=== PATIENT | male | born 1955 | race Caucasian/White ===

== ENCOUNTER → 2023-11-26 06:23 | Day surgery (SDC) | payer MEDICARE, OTHER, SELFPAY | LOC: GI 06:23 | PROVIDERS: ATTENDING PHYSICIAN Surgery | DX: R19.4 Change in bowel habit (principal); Z98.0 Intestinal bypass and anastomosis status; K63.5 Polyp of colon | CPT/HCPCS: 45380; 88305 ==

== ENCOUNTER → 2023-12-01 07:36 | Outpatient (REF) | payer MEDICARE, OTHER, SELFPAY | LOC: RAD 07:36 | PROVIDERS: ATTENDING PHYSICIAN Internal Medicine Interventional Cardiology; FAMILY PHYSICIAN Family Medicine | DX: I73.9 Peripheral vascular disease, unspecified (principal) | CPT/HCPCS: 93922; 93925 ==

== ENCOUNTER → 2024-02-05 11:56 | Outpatient (REF) | payer MEDICARE, OTHER, SELFPAY | LOC: MRI 3T 11:56 | PROVIDERS: ATTENDING PHYSICIAN Internal Medicine Gastroenterology; FAMILY PHYSICIAN Family Medicine | DX: Z15.89 Genetic susceptibility to other disease (principal) | CPT/HCPCS: 74183; A9575 ==

== ENCOUNTER → 2024-02-17 08:55 | Outpatient (REF) | payer MEDICARE, OTHER, SELFPAY | LOC: HWRAD 08:55 | PROVIDERS: ATTENDING PHYSICIAN Internal Medicine; FAMILY PHYSICIAN Family Medicine | DX: F17.210 Nicotine dependence, cigarettes, uncomplicated (principal) | CPT/HCPCS: 71271 ==

== ENCOUNTER 2024-04-26 06:09 | Day surgery (SDC) | payer MEDICARE, OTHER, SELFPAY ==
--- NOTE | 2024-03-23 12:11 | CM ---
Patient is scheduled for an elective L TKR on 04/26/24- he is a same day patient. Spoke with patient prior to surgery. Introduced role of Orthopedic Navigator. Patient reports that he lives with his in a two story home. There is one step to enter
and a flight of steps to the second floor. He currently functions independently. He has a cane, shower seat, grab bar in the shower and rolling walker. He has never had VN services. PCP is Umer Gonzalez.
Discussed orthopedic program and post surgical plans. Reviewed that he will have VN services initially (medicare.gov website and ratings reviewed) and will then start outpatient PT. Patient selects [facility] (face sheet faxed to [facility] to facilitate
confirmation of benefits) for his home care needs and will go to [facility] for outpatient PT.
Patient is in agreement with plan and states that his will be home with him.
Patient will complete online education.
Plan: Orthopedic Navigator will remain available to assist with the care of patient and will reassess discharge needs after surgery.
[2024-04-05 12:15] VITALS: BMI 28.7
[2024-04-05 13:54] LABS: Mean Corpuscular Hgb 32.6 pg (27.0-31.0); Mean Platelet Volume 10.6 fL (7.4-10.4); Platelet Count 299 10^3/uL (130-400); Red Cell Dist. Width 13.7 % (11.5-14.5); White Blood Cell Count 10.5 10^3/uL (4.8-10.8)
[2024-04-05 14:26] LABS: ALT (SGPT) 31 U/L (0-50); AST (SGOT) 31 U/L (17-59); Albumin 3.8 g/dl (3.5-5.0); Alkaline Phosphatase 108 U/L (38-126); Blood Urea Nitrogen 15 mg/dl (9-20); Calcium 9.3 mg/dl (8.4-10.2); Carbon Dioxide 26 mmol/L (22-30); Chloride 103 mmol/L (98-107); Estimated Creatinine Clearance 49 ml/min; Glucose 108 mg/dl (70-99); Potassium 4.3 mmol/L (3.5-5.1); Sodium 137 mmol/L (135-145); Total Bilirubin 0.5 mg/dl (0.2-1.3); Total Protein 6.1 g/dl (6.3-8.2); eGFR > 60.00
[2024-04-05 17:00] VITALS: BMI 28.7
[2024-04-06 09:41] LABS: Glycohemoglobin (HgbA1c) 6.4 % (4.0-5.6)
--- NOTE | 2024-04-06 16:04 | W.PN.UPDATE ---
Update Note
Progress Note Update
Metformin 500mg daily with carb control advised due to A1C 6.4.
Again advised tobacco cessation which he agrees
[2024-04-26] VITALS (11 sets, daily range): BP systolic 114–145; BP diastolic 59–94; PULSE 57; BMI 28.7
[2024-04-26 06:36] LABS: Glucose - Point of Care 115 mg/dl (70-99)
[2024-04-26] MEDS: TYLENOL 650 MG PO (06:38)
[2024-04-26] MEDS: CELEBREX 200 MG PO (06:38)
[2024-04-26] MEDS: NORMOSOL-R 1000 IV (06:38)
--- NOTE | 2024-04-26 07:09 | W.DS.TRANS ---
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
-
Discharge Instructions:
Discharge Diagnosis/Procedures L TKA Dr. Hodges 04/26/24
Diet Diabetic, Carb Controlled
Activity As tolerated,With Walker
Driving Restrictions No driving
Bathing Restrictions OK to Shower
Other Services PT
Wound Care Aquacel in place
Instructions:
Stand-Alone Forms: SDS Total Hip and Knee D/C
Changes to Home Medications: Yes
Discharge Medications:
DC Medications w/original date entered in [facility]
atorvastatin 40 mg tablet 40 mg PO QPM ##30 07/13/18
aspirin 81 mg chewable tablet 81 mg PO QPM 12/22/19
magnesium oxide 500 mg PO BID #60 tabs 12/25/19
multivitamin-ferrous fumarate-folic acid 18 mg-400 mcg tablet (Centrum) 1 ea PO DAILY 12/11/21
omeprazole 20 mg capsule,delayed release 20 mg PO DAILY 12/11/21
umeclidinium 62.5 mcg-vilanterol 25 mcg/actuation powdr for inhalation (Anoro Ellipta) 1 ea IH DAILY 12/11/21
wheat dex-L. acid-aspartame 4 gram-500 million cell/6 gram oral powder (Fiber With Probiotic) 360 gm PO DAILY 12/11/21
oxycodone 15 mg tablet,oral ONLY (not feeding tubes) 15 mg PO Q4H 03/06/23
amlodipine 2.5 mg tablet 2.5 mg PO DAILY 03/31/24
atenolol 100 mg tablet 100 mg PO HS 03/31/24
ferrous sulfate 325 mg (65 mg iron) tablet 325 mg PO BID 03/31/24
finasteride 5 mg tablet 5 mg PO DAILY 03/31/24
gabapentin 300 mg capsule 600 mg PO HS 03/31/24
tamsulosin 0.4 mg capsule 0.4 mg PO BID 03/31/24
celecoxib 200 mg capsule 200 mg PO DAILY anti-inflammatory #14 caps 04/05/24
dexamethasone 4 mg tablet 4 mg PO BID inflammation #6 tabs 04/05/24
mupirocin 2 % topical ointment 1 applic topical BID infection prevention #1 tube 04/05/24
metformin 500 mg tablet 500 mg PO .dailywmeal elevated blood sugar #30 tabs 04/06/24
Saccharomyces boulardii 250 mg capsule (Florastor) 250 mg PO BID #1 cap 04/26/24
acetaminophen 325 mg capsule (Tylenol) 650 mg (2 x 325 mg) PO QID #2 caps 04/26/24
aspirin 325 mg tablet 325 mg PO DAILY blood clot prevention #1 tab 04/26/24
docusate sodium 100 mg capsule (Colace) 100 mg PO BID stool softner #1 cap 04/26/24
magnesium hydroxide 400 mg/5 mL oral suspension (Milk of Magnesia) 30 ml PO HS PRN Constipation #1 mL 04/26/24
sennosides 8.6 mg tablet (Senokot) 17.2 mg (2 x 8.6 mg) PO BID laxative #2 tabs 04/26/24
Home Medication Changes
celecoxib 200 mg capsule 200 mg PO DAILY anti-inflammatory #14 caps 04/05/24
dexamethasone 4 mg tablet 4 mg PO BID inflammation #6 tabs 04/05/24
mupirocin 2 % topical ointment 1 applic topical BID infection prevention #1 tube 04/05/24
metformin 500 mg tablet 500 mg PO .dailywmeal elevated blood sugar #30 tabs 04/06/24
Saccharomyces boulardii 250 mg capsule (Florastor) 250 mg PO BID #1 cap 04/26/24
Pending Results: No
[2024-04-26] MEDS: DILAUDID 0.5 MG IV (09:00)
--- NOTE | 2024-04-26 10:36 | CM ---
Patient had planned L TKR today. Met with patient and his at bedside to review discharge plans. Patient will be returning home today with services through [facility]. On Friday, 04/30, patient will start outpatient PT at [facility]. Reviewed MD follow
up in two weeks and patient has already scheduled his appointment.
Patient has his rolling walker here with him.
PT and VN were kept updated as to progress and discharge plans.
[2024-04-26] MEDS: ROXICODONE 5 MG PO ×2 (10:48→12:02)
[2024-04-26] MEDS: ANCEF 5 IV (11:14)
[2024-04-26] MEDS: FLOMAX 0.400000000000000022 MG PO (11:15)
[2024-04-26] MEDS: PROSCAR 5 MG PO (11:15)
== END 2024-04-26 13:25 | disposition home or self-care (01) ==
LOC: SDS 06:09
PROVIDERS: ATTENDING PHYSICIAN Specialist; FAMILY PHYSICIAN Family Medicine; OTHER PHYSICIAN Internal Medicine Interventional Cardiology; OTHER PHYSICIAN Physician Assistant Medical
DX: M17.12 Unilateral primary osteoarthritis, left knee (principal)
CPT/HCPCS: 27447; 36415; 73560; 80053; 82962; 83036; 85027; 87070; 97116; 97161; C1713; C1776

== ENCOUNTER → 2024-05-20 13:24 | Outpatient (REF) | payer MEDICARE, OTHER, SELFPAY | LOC: RAD 13:24 | PROVIDERS: ATTENDING PHYSICIAN Family Medicine | DX: R60.0 Localized edema (principal) | CPT/HCPCS: 93971 ==

== ENCOUNTER → 2024-05-25 06:06 | Outpatient (REF) | payer MEDICARE, OTHER, SELFPAY ==
[2024-05-25 09:33] LABS: % Basophils 1.2 % (0-2); % Eosinophils 2.7 % (0-6); % Immature Granulocytes 0.8 % (0-0.5); % Monocytes 8.3 % (1.7-9.3); Absolute Basophils 0.1 10^3/uL (0-0.2); Absolute Eosinophils 0.2 10^3/uL (0-0.7); Absolute Immature Granulocytes 0.1 10^3/uL (0-0.05); Absolute Lymphocytes 1.8 10^3/uL (1.2-3.4); Absolute Monocytes 0.6 10^3/uL (0.1-0.6); Absolute Neutrophils 4.7 10^3/uL (1.4-6.5); Hematocrit 37.3 % (39.0-52.0); Hemoglobin 12.7 g/dL (13.0-18.0); Mean Corpuscular Hgb 31.8 pg (27.0-31.0); Mean Corpuscular Volume 93.3 fL (80.0-94.0); Mean Platelet Volume 9.9 fL (7.4-10.4); Nucleated Red Blood Cells % 0 % (-); Platelet Count 433 10^3/uL (130-400); Red Cell Dist. Width 13.8 % (11.5-14.5); White Blood Cell Count 7.5 10^3/uL (4.8-10.8)
[2024-05-25 09:56] LABS: ALT (SGPT) 17 U/L (0-50); AST (SGOT) 23 U/L (17-59); Albumin 3.6 g/dl (3.5-5.0); Alkaline Phosphatase 123 U/L (38-126); Blood Urea Nitrogen 20 mg/dl (9-20); Calcium 9.4 mg/dl (8.4-10.2); Carbon Dioxide 26 mmol/L (22-30); Chloride 103 mmol/L (98-107); Glucose 92 mg/dl (70-99); HDL Cholesterol 33 mg/dl; Iron 54 ug/dl (49-181); LDL Cholesterol, Calculated 36 mg/dl; Magnesium 2.2 mg/dl (1.6-2.3); Potassium 4.4 mmol/L (3.5-5.1); Sodium 136 mmol/L (135-145); Total Bilirubin 0.4 mg/dl (0.2-1.3); Total Cholesterol 87 mg/dl (50-199); Total Protein 5.9 g/dl (6.3-8.2); Triglyceride 94 mg/dl (10-149); Very Low Density Lipoprotein 18 mg/dl (0-30); eGFR > 60.00
[2024-05-25 10:41] LABS: PSA, Total - Screen 1.15 ng/ml (0.0-4.0)
[2024-05-25 10:46] LABS: Ferritin 76.8 ng/ml (17.9-464.0)
[2024-05-25 11:22] LABS: TSH Reflex To Free T4 2.36 uIU/ml (0.47-4.68)
== END ==
LOC: HWLAB 06:06
PROVIDERS: ATTENDING PHYSICIAN Family Medicine
DX: E83.42 Hypomagnesemia (principal); E78.5 Hyperlipidemia, unspecified; N40.1 Benign prostatic hyperplasia with lower urinary tract symptoms; E78.00 Pure hypercholesterolemia, unspecified; R73.03 Prediabetes; E61.1 Iron deficiency; Z12.5 Encounter for screening for malignant neoplasm of prostate
CPT/HCPCS: 36415; 80053; 80061; 82728; 83036; 83540; 83735; 84443; 85025; G0103

== ENCOUNTER → 2024-05-26 11:06 | Outpatient (REF) | payer MEDICARE, OTHER, SELFPAY ==
[2024-05-26 16:25] LABS: Urine Albumin Negative (Neg - Trace); Urine Bilirubin Negative (Negative); Urine Character Clear (Clear); Urine Color Yellow; Urine Glucose Negative (Negative); Urine Ketone Negative (Negative); Urine Leukocyte Negative (Negative); Urine Nitrite Negative (Negative); Urine Occult Blood Negative (Negative); Urine Urobilinogen Negative (Neg - 1+)
== END ==
LOC: HWLAB 11:06
PROVIDERS: ATTENDING PHYSICIAN Family Medicine
DX: E83.42 Hypomagnesemia (principal); E78.5 Hyperlipidemia, unspecified; N40.1 Benign prostatic hyperplasia with lower urinary tract symptoms; E78.00 Pure hypercholesterolemia, unspecified; R73.03 Prediabetes; E61.1 Iron deficiency
CPT/HCPCS: 81003

== ENCOUNTER → 2024-06-14 12:50 | Outpatient (REF) | payer MEDICARE, OTHER, SELFPAY | LOC: RAD 12:50 | PROVIDERS: ATTENDING PHYSICIAN Surgery Vascular Surgery; FAMILY PHYSICIAN Family Medicine | DX: I73.9 Peripheral vascular disease, unspecified (principal) | CPT/HCPCS: 93922; 93925 ==

== ENCOUNTER 2024-11-22 07:59 | Emergency (ER) | payer MEDICARE, OTHER, SELFPAY ==
[2024-11-22 08:01] VITALS: BP 146/62
--- NOTE | 2024-11-22 08:19 | ED.GENMED ---
History of Present Illness
General
Chief Complaint: Male Genito-Urinary Symptoms
Source: patient
Exam Limitations: none
Time Seen by Provider: 11/22/24 08:09
History of Present Illness
History of Present Illness:
69-year-old male presents with inability urinate since 10 PM last evening. He has a history of enlarged prostate and follows with urology for this. He takes finasteride and Flomax. He moved his bowels this morning thought he would be able to void
afterwards but he is not been able to. He states his stream has been getting weaker over the past week. No fever or vomiting. No other complaints at this time
Past History
Past History
ED Past Medical History: GERD, HTN, Hypercholesterolemia, Other (Chronic back pain, left occipital stroke 2018) and Other (Diverticulitis, adenomatous polyp of large intestine with resection, C. difficile infection)
ED Past Surgical History: Bowel resection (Bowel resection with colostomy and reversal of colostomy) and Orthopedic (Multiple orthopedic surgeries including lumbar fusion, knee surgery, wrist surgery)
Social History
Tobacco: Smoker
Alcohol: Occasional
Drug: None
Personal:
Living: with family
Family History
Family History: Other (reviewed and unremarkable)
Phy Exam
Physical Exam
Physical Exam:
General: Well-appearing male no acute respiratory distress
HEENT: Normocephalic atraumatic
Abdomen is soft suprapubic discomfort is noted upon palpation no costovertebral angle tenderness
Extremities: No cyanosis
Course
Vital Signs
Initial and Last Documented VS:
Initial Vital Signs
Temp Pulse Resp BP Pulse Ox
97.8 F 50 16 146/62 98
11/22/24 08:01 11/22/24 08:01 11/22/24 08:01 11/22/24 08:01 11/22/24 08:01
Last Documented Vital Signs
Temp Pulse Resp BP Pulse Ox
97.8 F 50 16 146/62 98
11/22/24 08:01 11/22/24 08:01 11/22/24 08:01 11/22/24 08:01 11/22/24 08:01
MDM/Problems Addressed
Differential Diagnosis Includes:
Urinary retention. Likely due to enlarged prostate. Feels well otherwise. Bladder scan pending. If patient is retaining large amount of urine we will insert Albarran catheter for urinary retention having follow-up with urology
*Critical Care Note
Total Time (30-74mins, 75-104mins- exclusive of procedures): Not Applicable
Update Note
Update Note:
Patient did have over 300 mL of urine in the bladder. He was not able to void on his own. Catheter placed Albarran remained in place due to urinary retention. Will advise follow-up with urology
ED Attending Note
-
Portions of this chart may have been created with voice recognition software.� Occasional wrong word or��sound alike� substitutions may have occurred due to the inherent limitations of voice recognition software.
Discharge Plan
Departure
Patient Disposition: Home (Routine Discharge)
Date of Disposition: 11/22/24
Time of Disposition: 10:31
Patient with high blood pressure during this ER visit?: No
Discharge Problem:
Acute urinary retention
Instructions: How to Care for Your Albarran Catheter, Male, Urinary Retention (DC)
Prescriptions:
No Action
atorvastatin 40 MG tablet
40 mg PO QPM Qty: 30 0RF
aspirin 81 MG tablet,chewable
81 mg PO QPM
magnesium oxide 500 MG tablet
500 mg PO BID Qty: 60 0RF
Anoro Ellipta 1 EACH blister with device
1 ea IH DAILY
Centrum 1 EACH tablet
1 ea PO DAILY
omeprazole 20 MG capsule,delayed release(DR/EC)
20 mg PO DAILY
Fiber With Probiotic 360 GM powder
360 gm PO DAILY
Patient Comments:
fiberchoice PRE BIOTIC gummy daily
oxycodone 15 mg Tablet, Oral Only
15 mg PO Q4H
atenolol 100 mg Tablet
100 mg PO HS
amlodipine 2.5 mg Tablet
2.5 mg PO DAILY
tamsulosin 0.4 mg Capsule
0.4 mg PO BID
ferrous sulfate 325 mg (65 mg iron) Tablet
325 mg PO BID
gabapentin 300 mg Capsule
600 mg PO HS
finasteride 5 mg Tablet
5 mg PO DAILY
mupirocin 2 % ointment
1 applic topical BID Qty: 1 0RF
Patient Comments:
strated treatment friday04/23/24 and completed BID, last took at home 04/26/24 in am
celecoxib 200 mg capsule
200 mg PO DAILY Qty: 14 0RF
Rx Instructions:
*take with food
*space out 2 hours from aspirin
dexamethasone 4 mg tablet
4 mg PO BID Qty: 6 0RF
Rx Instructions:
take with food
post-op use only
metformin 500 mg tablet
500 mg PO .dailywmeal Qty: 30 3RF
Patient Comments:
last took 04/25/24 at 1700
sennosides [Senokot] 8.6 mg tablet
17.2 mg PO BID Qty: 2 0RF
aspirin 325 mg tablet
325 mg PO DAILY Qty: 1 0RF
Rx Instructions:
Take with food
magnesium hydroxide [Milk of Magnesia] 400 mg/5 mL suspension
30 ml PO HS PRN (Reason: Constipation) Qty: 1 0RF
docusate sodium [Colace] 100 mg capsule
100 mg PO BID Qty: 1 0RF
Saccharomyces boulardii [Florastor] 250 mg capsule
250 mg PO BID Qty: 1 0RF
acetaminophen [Tylenol] 325 mg capsule
650 mg PO QID Qty: 2 0RF
docusate sodium [Colace] 100 mg capsule
100 mg PO BID Qty: 60 0RF
sennosides 17.2 mg tablet
17.2 mg PO DAILY Qty: 30 0RF
acetaminophen 500 mg capsule
1,000 mg PO Q6H PRN (Reason: fever or pain) Qty: 90 0RF
baclofen 10 mg tablet
10 mg PO TID Qty: 90 0RF
Referrals:
Umer Gonzalez, [Family Provider] -
Activity Restrictions/Additional Instructions:
Keep Albarran catheter in place. Follow-up with urology for next available appointment. Return if needed
Interventions
Interventions:
*Risk Screen - Suicide Last Done: 11/22/24 08:01
*General Assessment Last Done: 11/22/24 08:01
*Neglect/Abuse Screening Last Done: 11/22/24 08:01
ED-Male Genitourinary Assessment Last Done: 11/22/24 09:06
Discharge Date and Time
Print Language: MALTESE
[2024-11-22 11:07] VITALS: BP 145/65
== END 2024-11-22 11:10 | disposition home or self-care (01) ==
LOC: EMR 07:59
PROVIDERS: EMERGENCY PHYSICIAN Emergency Medicine; FAMILY PHYSICIAN Family Medicine
DX: N40.1 Benign prostatic hyperplasia with lower urinary tract symptoms (principal); R33.8 Other retention of urine; K21.9 Gastro-esophageal reflux disease without esophagitis; I10 Essential (primary) hypertension; E78.00 Pure hypercholesterolemia, unspecified; Z86.73 Personal history of transient ischemic attack (TIA), and cerebral infarction without residual deficits
CPT/HCPCS: 51702; 99283

== ENCOUNTER → 2025-01-14 10:00 | Outpatient (REF) | payer MEDICARE, OTHER, SELFPAY | LOC: DHVS 10:00 | PROVIDERS: ATTENDING PHYSICIAN Surgery Vascular Surgery; FAMILY PHYSICIAN Family Medicine | DX: I73.9 Peripheral vascular disease, unspecified (principal) | CPT/HCPCS: 93922; 93925 ==

== ENCOUNTER → 2025-02-24 10:49 | Outpatient (REF) | payer MEDICARE, OTHER, SELFPAY | LOC: PAVMRI 10:49 | PROVIDERS: ATTENDING PHYSICIAN Internal Medicine Gastroenterology; FAMILY PHYSICIAN Family Medicine | DX: K86.2 Cyst of pancreas (principal) | CPT/HCPCS: 74183; A9575 ==

== ENCOUNTER → 2025-05-05 08:31 | Outpatient (REF) | payer MEDICARE, OTHER, SELFPAY | LOC: HWRAD 08:31 | PROVIDERS: ATTENDING PHYSICIAN Internal Medicine; FAMILY PHYSICIAN Family Medicine | DX: F17.210 Nicotine dependence, cigarettes, uncomplicated (principal) | CPT/HCPCS: 71271 ==

== ENCOUNTER → 2025-07-01 06:06 | Outpatient (REF) | payer MEDICARE, OTHER, SELFPAY ==
[2025-07-01 09:17] LABS: Hematocrit 43.4 % (39.0-52.0); Hemoglobin 14.9 g/dL (13.0-18.0); Mean Corp Hgb Conc. 34.3 g/dL (33.0-37.0); Mean Corpuscular Volume 96.7 fL (80.0-94.0); Nucleated Red Blood Cells % 0 % (-); Platelet Count 286 10^3/uL (130-400); Red Cell Dist. Width 14.0 % (11.5-14.5)
[2025-07-01 09:42] LABS: ALT (SGPT) 31 U/L (0-50); AST (SGOT) 22 U/L (17-59); Albumin 4.0 g/dl (3.5-5.0); Alkaline Phosphatase 100 U/L (38-126); Blood Urea Nitrogen 23 mg/dl (9-20); Calcium 9.9 mg/dl (8.4-10.2); Carbon Dioxide 30 mmol/L (22-30); Chloride 100 mmol/L (98-107); Glucose 97 mg/dl (70-99); HDL Cholesterol 44 mg/dl; LDL Cholesterol, Calculated 65 mg/dl; Magnesium 2.1 mg/dl (1.6-2.3); Potassium 4.3 mmol/L (3.5-5.1); Sodium 136 mmol/L (135-145); Total Protein 6.4 g/dl (6.3-8.2); Very Low Density Lipoprotein 16 mg/dl (0-30); eGFR 58.37
[2025-07-01 10:00] LABS: Urine Character Clear (Clear)
[2025-07-01 10:10] LABS: PSA, Total - Screen 1.12 ng/ml (0.0-4.0); Urine Red Blood Cell 0-2 /HPF (0-2); Urine Squamous Cell 0-2 /LPF (Few); Urine White Cell 21-25 /HPF (0-5)
[2025-07-01 10:12] LABS: Glycohemoglobin (HgbA1c) 6.2 % (4.0-5.6)
[2025-07-01 11:12] LABS: Ferritin 77.3 ng/ml (17.9-464.0)
== END ==
LOC: HWLAB 06:06
PROVIDERS: ATTENDING PHYSICIAN Family Medicine
DX: D50.9 Iron deficiency anemia, unspecified (principal); E78.5 Hyperlipidemia, unspecified; E83.42 Hypomagnesemia; R73.03 Prediabetes; Z12.5 Encounter for screening for malignant neoplasm of prostate
CPT/HCPCS: 36415; 80053; 80061; 81003; 81015; 82728; 83036; 83735; 84443; 84550; 85025; G0103

== ENCOUNTER → 2025-07-06 06:09 | Outpatient (REF) | payer MEDICARE, OTHER, SELFPAY | LOC: HWLAB 06:09 | PROVIDERS: ATTENDING PHYSICIAN Family Medicine | DX: N39.0 Urinary tract infection, site not specified (principal) | CPT/HCPCS: 87086 ==

== ENCOUNTER → 2025-09-15 10:02 | Outpatient (REF) | payer MEDICARE, OTHER, SELFPAY | LOC: WDC 10:02 | PROVIDERS: ATTENDING PHYSICIAN Family Medicine | DX: N64.4 Mastodynia (principal); N61.0 Mastitis without abscess | CPT/HCPCS: 76642; 77062; 77066 ==